=== PATIENT | female | born 1940 | race Caucasian/White ===

== ENCOUNTER 2017-10-11 11:02 | Outpatient (CLI) | payer MEDICARE ==
--- NOTE | 2017-10-11 14:52 | RAD ---
FRONTAL AND LATERAL IMAGING OF THE CHEST: 10/11/2017 COMPARISON: 06/10/2015 HISTORY: Shortness of breath. FINDINGS: There is attenuation of the bronchopulmonary vasculature with pulmonary hyperinflation and mild incre ased linear interstitial density, stable. Question a history of COPD. There is no pneumothorax, ple ural fluid, focal consolidation, or alveolar edema. IMPRESSION: Chronic findings as detailed above. No focal consolidation or evidence of pulmonary edema. POS: MARILEE
== END 2017-10-11 11:03 | disposition home or self-care (01) ==
LOC: RAD 11:02
PROVIDERS: ATTEND Internal Medicine Critical Care Medicine
DX: R06.00 Dyspnea, unspecified (principal)
CPT/HCPCS: 71020

== ENCOUNTER 2020-09-13 19:17 | Inpatient (IN) | payer MEDICARE, OTHER ==
[~2020-09-13 19:17] MED LIST: Iopamidol-370 76% 500 ML 1 ML ONE
--- NOTE | 2020-09-13 19:35 | CT ---
CT of thebrain: 09/13/2020 COMPARISON: 09/13/2020 HISTORY:Stroke alert, dysarthria, right-sided weakness TECHNIQUE: Serial axial CT imaging at 5 mm intervals from vertex through skull base without contrast Findings:The imaged paranasal sinuses and mastoid air cells appear well-aerated. No displaced calvari al fracture. No intracranial hemorrhage, midline shift, mass effect, or ventricular enlargement. Impression:No intracranial hemorrhage. Results called to Dr. Davalos at 7:30 PM 09/13/2020
[2020-09-13] MEDS ORDERED: Acetaminophen 325 MG TAB PO PRN (23:32)
[2020-09-14] MEDS ORDERED: Aspirin 325 MG TAB PO SCH (00:30)
[2020-09-14 00:52] VITALS: BMI 17.4
[2020-09-14] MEDS ORDERED: Enoxaparin Sodium 60 MG/0.6 ML SYRINGE SC SCH ×3 (01:30→21:00)
[2020-09-14] MEDS: Sodium Chloride 0.9% 1,000 ML IV SCH ×2 (01:40→15:24)
--- NOTE | 2020-09-14 02:33 | PDOC.BPN ---
- Brief Progress Note [id number] HP dictated
--- NOTE | 2020-09-14 03:09 | HP ---
CHIEF COMPLAINT: Stroke-like symptoms. HISTORY OF PRESENT ILLNESS: Ms. Keene is a 80-year-old female with past medical history of hypothyroidism, is being transferred from [facility] after she presented with stroke-like symptoms. As per family, the patient had slurred speech, leg weakness. Last seen normal at 11:30 a.m. The patient had expressive aphasia. CT of the brain, no acute findings. CTA of the brain, no acute finding. The patient's symptoms gradually improved to some degree with improvement in speech and leg strength. The patient is being admitted to hospital for further management. PAST MEDICAL HISTORY: Hypothyroidism. PAST SURGICAL HISTORY: Reviewed and not pertinent. SOCIAL HISTORY: No history of smoking, alcohol drinking, or drug abuse reported. FAMILY HISTORY: Reviewed and noncontributory. REVIEW OF SYSTEMS: Review of 14 systems negative except what is mentioned in history of present illness. ALLERGIES: ALLERGIC TO IODINE AND SULFA. HOME MEDICATION: Synthroid. PHYSICAL EXAMINATION: GENERAL: The patient is awake, mild aphasia. VITAL SIGNS: Blood pressure 137/90, pulse is 90, respiratory rate is 18, oxygen saturation 100% on room air, and temperature 98.9. HEAD AND NECK: Normocephalic and atraumatic. Neck is supple. CHEST: Fair bilateral air entry. HEART: Irregularly irregular. ABDOMEN: Soft and nontender. Bowel sounds present. NEUROLOGIC: Awake, alert, mild aphasia, moving four extremities. PSYCHIATRIC: Unable to assess. EXTREMITIES: No clubbing or cyanosis. DIAGNOSTIC DATA: EKG showed atrial fibrillation. LABORATORY DATA: , hemoglobin 13.2, platelets 178. INR is 0.9. Sodium 139, potassium 3.9, BUN is 30, and creatinine 0.9. CT of the brain, no acute findings. CTA of brain and neck, no acute arterial abnormality. ASSESSMENT: 1. Cerebrovascular accident. 2. Atrial fibrillation, new onset? 3. Hypothyroidism. PLAN: 1. Admit. 2. Tele monitor. 3. Frequent neuro checks. 4. Aspirin. 5. We will start anticoagulation in a patient presenting with CVA. EKG showing atrial fibrillation. 6. Consult Neurology in a.m. for evaluation and further recommendations. 7. 2D echo. 8. Consult Cardiology for evaluation and further recommendations. 9. Reconcile home medications. 10. DVT prophylaxis as appropriate. 11. Expected length of stay, 2 midnights or more. Job ID: [id number]
[2020-09-14 07:09] LABS: Cardiac Risk 2.6 (Less than 4.5)
[2020-09-14 08:39] LABS: SARS-CoV-2 MS2 Positive; SARS-CoV-2 N Gene Negative; SARS-CoV-2 S Gene Negative; SARS-CoV-2 by NAA Not Detected (NotDetected); SARS-CoV-2 orf1ab Negative
[2020-09-14] MEDS ORDERED: Aspirin 325 mg Enteric Coated Tablet PO SCH (09:00)
[2020-09-14] MEDS ORDERED: Enoxaparin Sodium 40 MG/0.4 ML SYRINGE SC SCH (09:00)
--- NOTE | 2020-09-14 12:13 | PDOC.BPN ---
- Brief Progress Note Encounter Date: 09/14/20 Encounter Time: 12:13 Ms. Keene is a 80-year-old woman that is admitted to the hospital with TIA symptoms concerning for an acute stroke. Her CT of the head was negative and CT angio of the head and neck was normal. MRI of the brain is pending. She was found to have atrial fibrillation that is likely paroxysmal. Stroke work-up is ongoing. Awaiting neurologist recommendations.
--- NOTE | 2020-09-14 12:53 | CON ---
DATE OF CONSULTATION: 09/14/2020 CONSULTING PHYSICIAN: Hospitalist Service. IMPRESSION: 1. Left middle cerebral artery division stroke with mild expressive aphasia and right facial droop and resolving right-sided weakness. 2. Atrial fibrillation. PLAN: 1. MRI of the brain. 2. Start Eliquis 5 mg twice daily, if her MRI is negative for bleed. HISTORY OF PRESENT ILLNESS: Ms. Keene is a 80-year-old white female with no significant history other than hypothyroidism. She presented with right-sided weakness and expressive aphasia. Her CT and CT angiogram were unremarkable. EKG showed atrial fibrillation. Her deficits are improving. She has never had any stroke symptoms. She was not on any antiplatelet therapy or anticoagulation. 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 PAST MEDICAL HISTORY: Hypothyroidism. ALLERGIES: COMPAZINE, SULFA. SOCIAL HISTORY: No tobacco or alcohol use. FAMILY HISTORY: Noncontributory. MEDICATION LIST: Synthroid. REVIEW OF SYSTEMS: Ten-system review of systems is otherwise negative. PHYSICAL EXAMINATION: VITAL SIGNS: Have been stable. She is afebrile. HEENT: Pupils equal and reactive. Conjunctivae clear. Oropharynx clear. NECK: Supple. No lymphadenopathy. CHEST: Clear. ABDOMEN: Soft and nontender. EXTREMITIES: No cyanosis or edema. SKIN: Clear. NEUROLOGIC: She was alert and cooperative. Her speech was clear, but she had some expressive difficulties. Cranial nerve exam was only notable for a right facial droop. Her motor exam showed good strength bilaterally. Sensation was intact to light touch. Plantar responses were equivocal. Gait was not tested. No abnormal movements were seen. LABORATORY STUDIES: Reviewed. SUMMARY: A 80-year-old woman with an acute stroke. She is currently in atrial fibrillation, I would recommend anticoagulation, if her MRI is negative for a bleed. Job ID: [id number]
--- NOTE | 2020-09-14 13:03 | MRI ---
MRI brain noncontrast HISTORY: CVA. FINDINGS: Centered within the left thalamus is an oval 1.0 cm focus of restricted diffusion. Subtle s ignal abnormality at this location on the FLAIR and T2-weighted images. There are also abnormalities, 0.3 cm foci of restricted diffusion at the right thalamus and the left subinsular mikal ex. No mass effect or shift of midline structures. Ventricles are unremarkable. IMPRESSION : 3 small separate foci of acute infarct. Largest is at the left thalamus, 1.0 cm. No large vascular distribution infarct is evident.
--- NOTE | 2020-09-14 17:35 | CON ---
DATE OF CONSULTATION: 09/14/2020 REASON FOR CONSULTATION: Atrial fibrillation with a stroke. HISTORY OF PRESENT ILLNESS: Ms. Keene is a 80-year-old woman presented to the emergency room with stroke-like symptoms. Specifically, she had expressive aphasia, right facial droop, and right-sided weakness. The patient is found to be in atrial fibrillation and later converted to sinus rhythm. No previous history of atrial fibrillation. 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 The patient otherwise had been in good physical condition without any cardiac issues. REVIEW OF SYSTEMS: CONSTITUTIONAL: No significant weight gain or loss. VISION: No changes. HEARING: No changes. PULMONARY: No cough or wheezing. GASTROINTESTINAL: No nausea, vomiting, or diarrhea. SKIN: No rashes. NEUROLOGIC: As outlined above. PHYSICAL EXAMINATION: GENERAL: This is a delightful elderly woman. She is 5 feet 9 inches, 117 pounds, 80 years of age. She looks younger than her chronologic age. VITAL SIGNS: Blood pressure 135/87, pulse 70. LUNGS: Clear. CARDIAC: Normal S1, normal S2. There is no murmur, rub, or gallop. ABDOMEN: Soft and nontender. EXTREMITIES: No clubbing or cyanosis. She has no edema. Good peripheral pulses. LABORATORY DATA: Her creatinine is 0.93. MRI did not show any bleeding, did show three separate foci of acute infarct, largest of the left thalamus 1 cm. ASSESSMENT: 1. Stroke, cardioembolic from atrial fibrillation. 2. Normal left ventricular function on echocardiogram. PLAN: 1. She is being fully anticoagulated with Lovenox, then could be transitioned to Eliquis 5 mg twice a day. 2. We will give beta blockers as initial treatment for the atrial fibrillation which is paroxysmal. She will need to follow up with her primary bridge attacher in [place] at the time of discharge. Job ID: [id number]
[2020-09-14] MEDS ORDERED: Atorvastatin Calcium 40 MG TAB PO SCH (21:00)
[2020-09-14] MEDS ORDERED: diphenhydrAMINE 25 MG CAP PO SCH (21:00)
[2020-09-14] MEDS: Atorvastatin Calcium 40 MG TAB PO SCH (21:03)
[2020-09-15] MEDS: Sodium Chloride 0.9% 1,000 ML IV SCH ×2 (04:13→16:27)
[2020-09-15 04:47] LABS: #Basophils 0.1 thou/uL (0.0-0.2); #Lymphocytes 2.4 thou/uL (1.20-3.40); #Monocytes 0.4 thou/uL (0.11-0.59); #Neutrophils 3.4 thou/uL (1.40-6.50); %Basophils 0.8 % (0.0-1.0); %Eosinophils 0.5 % (0.0-10.0); %Lymphocytes 37.8 % (21.0-51.0); %Monocytes 6.8 % (0.0-10.0); %Neutrophils 54.1 % (42.0-75.0); Hemoglobin 11.2 g/dL (12.0-16.0); Mean Corpuscular HGB CONC 33.3 g/dL (32.0-36.0); Mean Corpuscular Hemoglobin 31.4 pg (27.0-31.0); Mean Corpuscular Volume 94.3 fL (78.0-98.0); Mean Platelet Volume 8.5 fL (7.4-10.4); Platelet Count 158 thou/uL (130-400); RBC Distribution Width 12.6 % (11.5-14.5); Red Blood Cell (RBC) Count 3.56 mill/uL (4.20-5.40); White Blood Cell (WBC) Count 6.2 thou/uL (4.8-10.8)
[2020-09-15 05:14] LABS: Anion Gap 8 mmol/L (10-20); BUN (Urea Nitrogen) 18 mg/dL (9.8-20.1); Calc. Creatinine Clearance 49 mL/min (70-130); Calcium 9.9 mg/dL (7.8-10.44); Carbon Dioxide 27 mmol/L (23-31); Chloride 110 mmol/L (98-107); Estimated GFR-MDRD 70; Glucose 79 mg/dL (83-110); Magnesium 1.9 mg/dL (1.6-2.6); Potassium 4.1 mmol/L (3.5-5.1); Sodium 141 mmol/L (136-145)
[2020-09-15] MEDS ORDERED: Enoxaparin Sodium 60 MG/0.6 ML SYRINGE SC SCH (09:00)
--- NOTE | 2020-09-15 14:07 | PRG ---
DATE OF SERVICE: 09/15/2020 SUBJECTIVE: Ms. Keene is resting comfortably now. No complaints. Blood pressure is 108/68, pulse is 62. The patient did get a reddish flushing pattern, earlier it was not clear whether it was the Lovenox or possibly the metoprolol. The Lovenox was held and she has not had any further problems. ASSESSMENT: Paroxysmal atrial fibrillation, now in sinus rhythm. PLAN: 1. Continue metoprolol long-acting 50 mg a day. 2. I would recommend going ahead to start Eliquis 5 mg twice a day instead of Lovenox. We will sign off. 3. 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 Job ID: [id number]
--- NOTE | 2020-09-15 14:41 | PDOC.HOSPP ---
- Subjective Encounter Date: 09/15/20 Encounter Time: 14:39 Subjective: This is a 80-year-old female who was admitted to the hospital for slurred speech and was found to have cardioembolic stroke likely from paroxysmal atrial fibrillation. Her MRI did confirm the stroke. She was seen by cardiology due to the atrial fibrillation which appears to be paroxysmal. They recommended patient stay on Eliquis and then rate control with metoprolol. Patient is back to sinus rhythm. Cardiology recommended follow-up with the patient's senior systems architect in [place]. With regards to the stroke it appears that her speech is improving on a daily basis. - Objective Vital Signs & Weight: Vital Signs (12 hours) Temp Pulse Pulse Pulse Pulse Resp BP 09/15/20 12:21 97.7 F 62 21 H 09/15/20 10:04 67 66 66 115/82 09/15/20 07:55 97 F L 60 17 09/15/20 03:48 97.5 F L 65 18 BP BP BP Pulse Ox 09/15/20 12:21 108/68 98 09/15/20 10:04 92/81 111/74 09/15/20 07:55 109/73 99 09/15/20 03:48 126/83 99 Weight Admit Weight 117 lb 9.6 oz Weight 117 lb 9.6 oz I&O: 09/14/20 09/15/20 09/16/20 06:59 06:59 06:59 Intake Total 700 2190 236 Balance 700 2190 236 Result Diagrams: 09/15/20 04:20 09/15/20 04:20 Radiology Reviewed by me: Yes EKG Reviewed by me: Yes Hospitalist ROS - Review of Systems ROS unobtainable: due to mental status Constitutional: reports: fever, weakness, malaise Gastrointestinal: reports: nausea Neurological: reports: weakness, numbness, incoordination, change in speech - Medication Medications: Active Medications Generic Name Dose Route Start Last Admin Trade Name Freq PRN Reason Stop Dose Admin Atorvastatin Calcium 80 mg 09/14/20 21:00 09/14/20 21:03 Atorvastatin Calcium 40 Mg Tab PO 80 mg HS AUREA Administration Enoxaparin Sodium 50 mg 09/15/20 09:00 09/15/20 11:54 Enoxaparin Sodium 60 Mg/0.6 Ml Syringe SC Not Given 0900,2100 AUREA Sodium Chloride 1,000 mls @ 75 mls/hr 09/13/20 23:45 09/15/20 04:13 Normal Saline 0.9% IV 1,000 mls .[id number] AUREA Administration Metoprolol Succinate 50 mg 09/15/20 09:00 09/15/20 09:45 Metoprolol Succinate Xl 50 Mg Tab PO 50 mg DAILY AUREA Administration - Exam General Appearance: NAD, awake alert Eye: PERRL, anicteric sclera ENT: normocephalic atraumatic, no oropharyngeal lesions, moist mucosa Neck: supple, symmetric, no JVD Heart: RRR, no murmur, no gallops, no rubs Respiratory: CTAB, no wheezes, no rales, no ronchi, normal chest expansion Gastrointestinal: soft, non-tender, non-distended, normal bowel sounds, no palpable masses Extremities: no cyanosis, no clubbing Skin: normal turgor Neurological: no weakness, no new deficit, facial droop, speech deficit Musculoskeletal: normal tone, normal strength, no muscle wasting, generalized weakness Psychiatric: normal affect, normal behavior, A&O x 3 Hosp A/P - Plan #1. Acute thalamic stroke. This is suspected to be cardioembolic secondary to atrial fibrillation. Her main deficit right now appears to be slurred speech and facial droop. We appreciate neurologist ongoing evaluation. Continue antiplatelets and statins. 2. Paroxysmal atrial fibrillation. She was seen by cardiology during this visit who recommended rate control and anticoagulation. She is back in sinus rhythm at the moment. 3. Dyslipidemia. Continue statins.
[2020-09-15] MEDS: Apixaban 5 MG TAB PO SCH (21:06)
[2020-09-15] MEDS: Atorvastatin Calcium 40 MG TAB PO SCH (21:06)
[2020-09-16] MEDS: Levothyroxine Sodium 88 MCG TAB PO SCH (06:20)
[2020-09-16] MEDS: Sodium Chloride 0.9% 1,000 ML IV SCH ×2 (06:20→18:29)
[2020-09-16] MEDS: Apixaban 5 MG TAB PO SCH ×2 (09:51→20:09)
--- NOTE | 2020-09-16 10:47 | CT ---
CT angiogram head CT angiogram neck: 09/13/2020 COMPARISON: None HISTORY: Dysarthria, right-sided weakness, acute stroke protocol TECHNIQUE: Axial CT imaging at 1.25 mm intervals from the lung apices through the skull base with IV contrast using CT angiogram protocol. Coronal and sagittal 3-D reformatted imaging obtained. FINDINGS: The visualized lung apices demonstrate no acute findings. Subtle linear density with puncta te calcifications within the medial left lung apex suggests scar. The imaged paranasal sinuses and mastoid air cells appear well-aerated. The retroantral fat and the p arapharyngeal fat appears clear. Parotid glands and submandibular glands appear grossly unremarkable. The tonsillar pillars, epiglottis and preepiglottic fat, hyoid bone, thyroid cartilage, cricoid carti tacos, and level of the glottis appear grossly unremarkable. The thyroid gland is not discretely visualized. The origin of the right subclavian artery, right common carotid artery, right vertebral artery, and l eft vertebral artery appear unremarkable. Visualized portions of the left common carotid artery and left subclavian artery appear unremarkable. On the basis of NASCET criteria there is no hemodynamically significant stenosis seen involving the i nternal carotid artery or the common carotid artery on either side. The bilateral vertebral arteries appear unremarkable. There is venous gas within the neck consistent with recent injection. No lymphadenopathy is appreciat ed within the neck. The basilar artery and its branches appear patent. No saccular aneurysm, high-grade stenosis, or vasc ular occlusion is evident involving the posterior circulation. The M1 segment, the MCA bifurcation, the A1 segment, and the distal LLOYD branches appear grossly unrem arkable bilaterally. No central arterial occlusion is seen involving the anterior circulation on either side. Review of the osseous structures demonstrates no worrisome lytic or blastic bone lesion. IMPRESSION: No acute arterial abnormality seen within the head or neck. Transcribed Date/Time: 09/16/2020 10:46 AM
[2020-09-16 12:22] LABS: Hemoglobin 11.5 g/dL (12.0-16.0); Platelet Count 141 thou/uL (130-400)
--- NOTE | 2020-09-16 15:05 | PRG ---
DATE OF SERVICE: 09/16/2020 SUBJECTIVE: Ms. Keene is doing well, but she had quite a bit of atrial fibrillation yesterday for several hours, then again she had some recurrent fibrillation later. She is currently in sinus rhythm. OBJECTIVE: VITAL SIGNS: Her blood pressure now 144/81 and pulse 80. LUNGS: Clear. CARDIAC: Normal S1 and normal S2. ABDOMEN: Soft and nontender. ASSESSMENT: Paroxysmal atrial fibrillation, recurrent despite beta-chelita. PLAN: 1. Stop metoprolol. 2. Substitute Multaq 400 mg twice a day. 3. Add amlodipine 2.5 mg a day for blood pressure. 4. Continue Eliquis. 5. She will follow up with her precision millwright in [place]. Job ID: [id number]
--- NOTE | 2020-09-16 15:55 | PDOC.HOSPP ---
- Subjective Encounter Date: 09/16/20 Encounter Time: 15:53 Subjective: Ms. Keene was seen and evaluated today. Her daughter was at the bedside when I visited. This is an unfortunate 80-year-old that had a stroke suspected from atrial fibrillation. She actually seems to be doing a little bit better. She is walking more and more and her speech seems to be cleared. Family still undecided about final disposition. Options include acute inpatient rehabilitation versus home with home health PT or day rehab as well. - Objective Vital Signs & Weight: Vital Signs (12 hours) Temp Pulse Pulse Pulse Pulse Resp BP 09/16/20 11:49 98.3 F 80 16 09/16/20 10:31 61 136/83 09/16/20 09:45 09/16/20 09:08 64 62 09/16/20 07:49 98.3 F 66 18 09/16/20 04:00 97.4 F L 64 18 BP BP BP Pulse Ox 09/16/20 11:49 144/81 H 97 09/16/20 10:31 09/16/20 09:45 96 09/16/20 09:08 157/97 H 132/75 09/16/20 07:49 110/69 96 09/16/20 04:00 101/61 95 Weight Admit Weight 117 lb 9.6 oz Weight 117 lb 9.6 oz I&O: 09/15/20 09/16/20 09/17/20 06:59 06:59 06:59 Intake Total 2190 2120 Balance 2190 2120 Result Diagrams: 09/16/20 11:53 09/16/20 11:53 Additional Labs: Accuchecks 09/13/20 19:42 POC Glucose 104 H Radiology Reviewed by me: Yes EKG Reviewed by me: Yes Hospitalist ROS - Review of Systems Constitutional: reports: weakness, malaise Cardiovascular: reports: palpitations - Medication Medications: Active Medications Generic Name Dose Route Start Last Admin Trade Name Freq PRN Reason Stop Dose Admin Apixaban 5 mg 09/15/20 21:00 09/16/20 09:51 Apixaban 5 Mg Tab PO 5 mg BID AUREA Administration Atorvastatin Calcium 80 mg 09/14/20 21:00 09/15/20 21:06 Atorvastatin Calcium 40 Mg Tab PO 80 mg HS AUREA Administration Sodium Chloride 1,000 mls @ 75 mls/hr 09/13/20 23:45 09/16/20 06:20 Normal Saline 0.9% IV 1,000 mls .[id number] AUREA Administration Levothyroxine Sodium 88 mcg 09/16/20 06:00 09/16/20 06:20 Levothyroxine Sodium 88 Mcg Tab PO 88 mcg 0600 AUREA Administration - Exam General Appearance: NAD, ill appearing Eye: PERRL, anicteric sclera ENT: normocephalic atraumatic, no oropharyngeal lesions Neck: supple, symmetric, no JVD, no thyromegaly, no lymphadenopathy Heart: RRR, no murmur, no gallops, no rubs Respiratory: CTAB, no wheezes, no rales, no ronchi, normal chest expansion Gastrointestinal: soft, non-tender, non-distended, normal bowel sounds, no palpable masses Skin: normal turgor Psychiatric: normal affect, normal behavior, A&O x 3 Hosp A/P - Plan #1. Acute thalamic stroke. This is suspected to be cardioembolic secondary to atrial fibrillation. Her main deficit right now appears to be slurred speech and facial droop. We appreciate neurologist ongoing evaluation. 09/16/2020. Continue antiplatelets and statins. She continues to improve her strength while working with physical therapy. 2. Paroxysmal atrial fibrillation. She was seen by cardiology during this visit who recommended rate control and anticoagulation. She is back in sinus rhythm at the moment. 09/16/2020. Her medicine has recently been changed to Multaq by the traffic technician. We will continue this for now. She is tolerating her Eliquis well. 3. Dyslipidemia. Continue statins.
--- NOTE | 2020-09-16 16:10 | PQF ---
CLINICAL DOCUMENTATION CLARIFICATION FORM: Dear Dr. Gatito HOUSE Date: 09/16/20 1600 Please exercise your independent, professional judgment in responding to the clarification form. Clinical indicators are provided on the bottom of this form for your review. Please check appropriate box(es): [ ] Protein Calorie Malnutrition: [ ] Mild [ ] Moderate [ ] Severe [ ] Other Malnutrition (please specify) [ X ] Underweight without malnutrition [ ] Cachexia [ ] Other diagnosis [ ] Unable to determine In addition, please specify: Present on Admission (POA): [ ] Yes [ ] No [ ] Unable to determine For continuity of documentation, please document condition throughout progress notes and discharge summary. Thank You. To be completed by CDI/Coding staff for physician review: CLINICAL INDICATORS - SIGNS / SYMPTOMS / LABS / RESULTS AND LOCATION IN MR Nutrition Dx > Malnutrition Related to aging process as evidenced by mild orbital and buccal fat pad wasting, mild temporalis and pectoralis muscle wasting, estimated intake < 50% of needs x years suggestive of moderate malnutrition in the context of chronic illness. BMI 17.4 RISK FACTORS / RESULTS AND LOCATION IN MR Advanced age ( 80), CVA ( H&P/ Mohamed-Justus) 09/14 TREATMENT / RESULTS AND LOCATION IN MR Dietary consult (09/14) Recommend Ensure Enlive TID (RD assessment/ 09/14) Moderate Malnutrition (in acute illness) Energy Intake: <75% of estimated energy requirement for > 7 days Weight Loss: 1-2%/1 week; 5%/ 1 month; 7.5%/3 months Other: mild body fat loss; mild muscle mass loss; mild fluid accumulation; Severe Malnutrition (in acute illness) Energy Intake: = 50% of estimated energy requirement for = 5 days Weight Loss: >2%/1 week; >5%/1 month; >7.5%/3 months Other: moderate body fat loss; moderate muscle mass loss; moderate- severe fluid accumulation; measurably reduced sand wheeler strength Moderate Malnutrition (in chronic illness) Energy Intake: <75% of estimated energy requirement for =1 month Weight Loss: 5%/1 month; 7.5%/3 months; 10%/6 months; 20%/1 year Other: mild body fat loss; mild muscle mass loss; mild fluid accumulation Severe Malnutrition (in chronic illness) Energy Intake: =75% of estimated energy requirement for =1 month Weight Loss: >5%/1 month; >7.5%/3 months; >10%/6 months; >20%/1 year Other: severe body fat loss; severe muscle mass loss; severe fluid accumulation; measurably reduced sand wheeler strength Thank you! CDS Signature: Cheyenne Brink RN Phone #: [phone] Date: 09/16/2020 This is a permanent part of the Medical Record [facility]
[2020-09-16] MEDS: Dronedarone HCl 400 MG TAB PO SCH (17:12)
[2020-09-16] MEDS: Atorvastatin Calcium 40 MG TAB PO SCH (20:09)
[2020-09-17 05:12] LABS: Anion Gap 11 mmol/L (10-20); BUN (Urea Nitrogen) 11 mg/dL (9.8-20.1); Calc. Creatinine Clearance 54 mL/min (70-130); Calcium 9.4 mg/dL (7.8-10.44); Carbon Dioxide 20 mmol/L (23-31); Chloride 112 mmol/L (98-107); Estimated GFR-MDRD 79; Glucose 88 mg/dL (83-110); Sodium 139 mmol/L (136-145)
[2020-09-17] MEDS: Levothyroxine Sodium 88 MCG TAB PO SCH (05:15)
[2020-09-17] MEDS: Sodium Chloride 0.9% 1,000 ML IV SCH (05:19)
[2020-09-17] MEDS ORDERED: Amlodipine 5 MG TAB PO SCH (09:00)
[2020-09-17] MEDS: Dronedarone HCl 400 MG TAB PO SCH (09:55)
[2020-09-17] MEDS: Apixaban 5 MG TAB PO SCH (09:55)
--- NOTE | 2020-09-17 10:26 | PDOC.DS.DS ---
Provider - Provider Date of Admission: 09/13/20 23:12 Date of Discharge: 09/17/20 Admitting Provider: Olayinka Maddox MD Consultations: Cardiology, Neurology Primary Care Physician: OUT OF TOWN Course - Hospital Course Hospital Course: This patient is a 80-year-old woman who was admitted to the hospital due to slurred speech and left-sided weakness. She ultimately was found to have a thalamic stroke. This was confirmed on an MRI of the brain obtained on admission. In addition she was found to be in atrial fibrillation and it was suspected that her stroke was cardioembolic secondary to the A. fib. She was seen during this visit by cardiology who recommended rate control and anticoagulation. Her atrial fib appears to be mostly paroxysmal. Today she is mostly in sinus rhythm but periodically she will go back into A. fib but rate controlled. Cardiology is recommending outpatient follow-up with the patient's rn procedure. She is on Eliquis, Lipitor and Multaq. She was evaluated by PT, OT and speech therapy during this hospitalization. They will recommend that she go home with home health and PT services. She will discharge home today and I discussed with the family about following up with oleomargarine maker regarding her visual deficits. Resuscitation Status: 09/13/20 23:32 Resuscitation Status Routine Resuscitation Status: FULL: Full Resuscitation - Labs Lab Results: 09/16/20 11:53 09/17/20 04:37 Abnormal Lab Results - Last 48 hrs 09/16/20 11:53: Hgb 11.5 L, Hct 35.6 L 09/17/20 04:37: Chloride 112 H, Carbon Dioxide 20 L - Physical Exam Vitals: Vital Signs (12 hours) Temp Pulse Resp BP Pulse Ox 09/17/20 09:55 60 09/17/20 08:06 98.1 F 60 18 93/62 97 09/17/20 04:00 97.8 F 81 16 94/51 L Weight Admit Weight 117 lb 9.6 oz Weight 117 lb 9.6 oz Physical Exam: The patient was seen and examined on the day of discharge. Plan - Discharge Medications Prescriptions: Apixaban [Eliquis] 5 mg PO BID #60 tab Atorvastatin Calcium [Lipitor] 80 mg PO HS #90 tab Dronedarone HCl [Multaq] 400 mg PO BID-WM #60 tab Amlodipine [Norvasc] 2.5 mg PO DAILY #90 tab Home Medications: Medication Instructions Recorded Confirmed Type Levothyroxine Sodium [Synthroid] 88 mcg PO DAILY 09/14/20 09/14/20 History Amlodipine [Norvasc] 2.5 mg PO DAILY #90 tab 09/17/20 Rx Apixaban [Eliquis] 5 mg PO BID #60 tab 09/17/20 Rx Atorvastatin Calcium [Lipitor] 80 mg PO HS #90 tab 09/17/20 Rx Dronedarone HCl [Multaq] 400 mg PO BID-WM #60 tab 09/17/20 Rx Allergies: enoxaparin [From Lovenox] Allergy (Verified 09/15/20 11:56) pt face and chest became red and flushed after receiving medication prochlorperazine [From Compazine] Allergy (Verified 09/13/20 23:47) Sulfa (Sulfonamide Antibiotics) Allergy (Verified 09/13/20 23:47) - Discharge Instructions Activity:: Activity as Tolerated Nourishment:: Heart Healthy Diet Therapies:: Home Health, Physical Therapy, Speech Therapy, Not Applicable Equipment/Supplies:: Not Applicable IV Therapy:: Not Applicable - Follow up Plan Referrals: [facility] PHYS[facility]IAN,OUT OF [Primary Care Provider] - Disposition: HOME HEALTH Quality - Care Measures CORE MEASURES:: Stroke/TIA - Stroke/TIA Did you prescribe antithrombotic therapy?: Yes Did you prescribe anticoagulant for A Fib/Flutter?: Yes Did you prescribe a statin medication?: Yes
--- NOTE | 2020-09-17 11:37 | PRG ---
DATE OF SERVICE: 09/16/2020 SUBJECTIVE: Ms. Keene is doing fine. She is resting comfortably. No chest pain or pressure. She has no complaints as mentioned. Her mental status appears unchanged. OBJECTIVE: VITAL SIGNS: Blood pressure 93/62 and pulse is in the 70, it is irregularly irregular. ABDOMEN: Soft and nontender. EXTREMITIES: No edema. ASSESSMENT: 1. Paroxysmal atrial fibrillation, persistent despite Multaq. 2. Previous stroke. PLAN: 1. Eliquis 5 mg twice a day. 2. Multaq 400 mg twice a day. 3. We stopped the amlodipine since her blood pressure is low. She will follow up with her frothing machine operator in [place]. If symptoms persist, consideration for metoprolol and flecainide could be given or just rate control. I explained to the patient's daughter again that the most important thing for stroke prevention is the anticoagulation. Job ID: [id number]
[2020-09-17 12:21] VITALS: BP 111/73; TEMP 98.4
== END 2020-09-17 15:46 | disposition home health service (06) | DRG 65 ==
LOC: ERS 19:17 → 2SE 23:12
PROVIDERS: ADMIT Internal Medicine; ATTEND Hospitalist
DX: I63.412 Cerebral infarction due to embolism of left middle cerebral artery (principal); G81.94 Hemiplegia, unspecified affecting left nondominant side; Z68.1 Body mass index [BMI] 19.9 or less, adult; R47.81 Slurred speech; Z20.828 Contact with and (suspected) exposure to other viral communicable diseases; R63.6 Underweight; R29.724 NIHSS score 24; E03.9 Hypothyroidism, unspecified; I48.0 Paroxysmal atrial fibrillation; R47.01 Aphasia; E78.5 Hyperlipidemia, unspecified; R29.810 Facial weakness; Z88.2 Allergy status to sulfonamides; Z88.8 Allergy status to other drugs, medicaments and biological substances; Z91.041 Radiographic dye allergy status; Z79.890 Hormone replacement therapy
CPT/HCPCS: 36415; 36416; 70450; 70496; 70498; 70551; 80048; 80061; 82565; 83735; 85014; 85018; 85025; 85049; 87635; 93306; J1650; Q0163; Q9967; U0003